=== PATIENT | female | born 1940 | race Caucasian/White ===

== ENCOUNTER 2023-05-19 11:40 | Inpatient (IN) | payer BC, MEDICARE, OTHER ==
[2023-05-19] VITALS (7 sets, daily range): BP systolic 79–115; BP diastolic 54–64; PULSE 111–128; RESP 18–24; O2SAT 94–98
[~2023-05-19] VITALS: Ht 152.4 cm; Wt 66.6 kg
[2023-05-19 12:44] LABS: Basophils # (auto) 0 10 ^3/uL (0-0.2); Basophils % (auto) 0.3 % (0.0-2.0); Eosinophils # (auto) 0 10 ^3/uL (0-0.8); Eosinophils % (auto) 0.1 % (0.0-7.0); Hematocrit 41.6 % (36.0-46.0); Hemoglobin 13.3 g/dL (12.2-16.2); Lymphocytes # (auto) 0.5 10 ^3/uL (0.4-5.4); Lymphocytes % (auto) 9.1 % (10.0-50.0); Mean Corpuscular Hemoglobin 29.6 pg (28.0-32.0); Mean Corpuscular Hgb Conc. 32.1 g/dL (32.0-36.0); Mean Corpuscular Volume 92.2 fL (80.0-100.0); Monocytes # (auto) 0.3 10 ^3/uL (0-1.3); Monocytes % (auto) 4.7 % (0.0-12.0); Neutrophils # (auto) 4.9 10 ^3/uL (1.6-8.6); Neutrophils % (auto) 85.8 % (37.0-80.0); Red Blood Cells 4.51 10^6/uL (4.0-5.20); Red Cell Distribution Width 15.3 % (11.8-14.3); White Blood Cell 5.7 10^3/uL (4.4-10.8)
[2023-05-19 13:02] LABS: Alanine Aminotransferase 21 U/L (7-40); Albumin 4.1 g/dL (3.2-4.8); Alkaline Phosphatase 99 U/L (46-116); Anion Gap 10 (5-15); Aspartate Aminotransferase 22 U/L (13-40); BUN/Creatinine Ratio 16.2 (10.0-20.0); Bilirubin, Total 0.4 mg/dL (0.2-1.0); Blood Urea Nitrogen 17 mg/dL (9-23); Calcium 8.9 mg/dL (8.7-10.4); Carbon Dioxide 23 mmol/L (20-30); Chloride 109 mmol/L (98-107); Glucose 119 mg/dL (74-106); Potassium 3.7 mmol/L (3.5-5.1); Sodium 142 mmol/L (136-145); Total Protein 6.4 g/dL (5.7-8.2)
[2023-05-19 13:13] LABS: Lactic Acid w/Reflex 2.5 mmol/L (0.4-2.0)
[2023-05-19] MEDS: IOHEXOL 350 MG/ML 100ML IJ ONE ×2 (13:28→15:12)
[2023-05-19] MEDS: ALBUTEROL SULF 2.5 MG/0.5ML(0.5%) NEB SOLN NEB ONE (13:37)
[2023-05-19] MEDS: IPRATROPIUM BROM 0.5 MG/2.5ML INH SOL NEB ONE (13:37)
[2023-05-19] MEDS: SODIUM CHLORIDE 0.9% 500 ML IV ONE (15:17)
[2023-05-19] MEDS: ASPirin 325 MG TAB PO ONE (15:29)
[2023-05-19] MEDS: methylPREDNISolone SOD SUCC 125 MG/2 ML VL IV ONE (15:29)
[2023-05-19 16:58] LABS: Base Excess -6.7 mmol/L (-2.0-2.0)
[2023-05-19] MEDS ORDERED: methylPREDNISolone SOD SUCC 40 MG/ML VL IV ONE (17:00)
[2023-05-19] MEDS ORDERED: hydrALAZINE HCL 20 MG/ML VL IV PRN (17:00)
[2023-05-19] MEDS: ALBUTEROL SULF 2.5 MG/0.5ML(0.5%) NEB SOLN ONE (18:03)
[2023-05-19] MEDS: IPRATROPIUM BROM 0.5 MG/2.5ML INH SOL ONE (18:03)
[2023-05-19 18:57] LABS: INR 1.09 (0.9-1.15); Partial Thromboplastin Time 27.8 SEC (24.5-34.5); Prothrombin Time 11.4 sec (9.3-11.8)
[2023-05-19 19:02] LABS: Lactic Acid w/Reflex 2.8 mmol/L (0.4-2.0)
[2023-05-19] MEDS ORDERED: MORPHINE SULFATE INJ 2 MG/ml SYRG IV PRN (19:45)
[2023-05-19] MEDS ORDERED: NITROGLYCERIN 0.4 MG SL TAB SL PRN (19:45)
[2023-05-19] MEDS ORDERED: HEPARIN SODIUM (PORCINE) 5000 UNITS/ML 1ML VIAL IV ONE (20:00)
[2023-05-19] MEDS: ENOXAPARIN SOD 60 MG/0.6 ML SYRINGE SC ONE ×2 (20:13→20:17)
[2023-05-19] MEDS: SODIUM CHLORIDE 0.9% 250 ML IV ONE (20:14)
[2023-05-19] MEDS: PIPERACILLIN-TAZOB 3.375GM 100 ML IV ONE (20:17)
[2023-05-19] MEDS: FUROSEMIDE 40 MG/4 ML VIAL IV ONE (20:17)
[2023-05-19] MEDS: ATORVASTATIN 20 MG TAB PO ONE (21:00)
[2023-05-19] MEDS: TICAGRELOR 90 MG TAB PO ONE (21:00)
[2023-05-19 21:39] LABS: Basophils # (auto) 0 10 ^3/uL (0-0.2); Basophils % (auto) 0.1 % (0.0-2.0); Eosinophils # (auto) 0 10 ^3/uL (0-0.8); Hematocrit 42.4 % (36.0-46.0); Hemoglobin 13.9 g/dL (12.2-16.2); Lymphocytes # (auto) 0.3 10 ^3/uL (0.4-5.4); Mean Corpuscular Hgb Conc. 32.7 g/dL (32.0-36.0); Mean Corpuscular Volume 91.5 fL (80.0-100.0); Monocytes # (auto) 0.1 10 ^3/uL (0-1.3); Monocytes % (auto) 0.9 % (0.0-12.0); Neutrophils # (auto) 6.3 10 ^3/uL (1.6-8.6); Red Blood Cells 4.64 10^6/uL (4.0-5.20); Red Cell Distribution Width 15.4 % (11.8-14.3); White Blood Cell 6.7 10^3/uL (4.4-10.8)
[2023-05-19 21:44] LABS: INR 1.06 (0.9-1.15); Partial Thromboplastin Time 29.2 SEC (24.5-34.5); Prothrombin Time 11.1 sec (9.3-11.8)
[2023-05-19] MEDS: HEPARIN DRIP/D5W 100UNITS/ML 250 ML IV SCH (22:28)
[2023-05-19] MEDS: methylPREDNISolone SOD SUCC 40 MG/ML VL IV SCH (22:35)
[2023-05-19] MEDS: DOXYCYCLINE 100MG/250ML 250 ML IV ONE ×2 (22:36→22:38)
[2023-05-19 22:59] LABS: COVID19 ANTIGEN SOFIA FIA NEGATIVE (NEGATIVE); Rapid Influenza A Negative (Negative); Rapid Influenza B Negative (Negative)
[2023-05-20] VITALS (19 sets, daily range): BP systolic 66–162; BP diastolic 45–134; PULSE 78–101; RESP 18–22; TEMP 97.9; O2SAT 92–97
[2023-05-20 05:30] LABS: Basophils # (auto) 0 10 ^3/uL (0-0.2); Basophils % (auto) 0.6 % (0.0-2.0); Eosinophils # (auto) 0 10 ^3/uL (0-0.8); Hematocrit 40.3 % (36.0-46.0); Hemoglobin 13.2 g/dL (12.2-16.2); Lymphocytes # (auto) 0.3 10 ^3/uL (0.4-5.4); Lymphocytes % (auto) 7.5 % (10.0-50.0); Mean Corpuscular Hemoglobin 29.3 pg (28.0-32.0); Mean Corpuscular Hgb Conc. 32.6 g/dL (32.0-36.0); Mean Corpuscular Volume 89.8 fL (80.0-100.0); Monocytes # (auto) 0.1 10 ^3/uL (0-1.3); Monocytes % (auto) 2.9 % (0.0-12.0); Neutrophils # (auto) 3.9 10 ^3/uL (1.6-8.6); Red Blood Cells 4.49 10^6/uL (4.0-5.20); Red Cell Distribution Width 15.3 % (11.8-14.3); White Blood Cell 4.4 10^3/uL (4.4-10.8)
[2023-05-20] MEDS: PHENYLEPHRINE IV 250 ML IV SCH (05:33)
[2023-05-20 05:42] LABS: Anion Gap 11 (5-15); Calcium 9.2 mg/dL (8.7-10.4); Carbon Dioxide 23 mmol/L (20-30); Chloride 105 mmol/L (98-107); Potassium 3.2 mmol/L (3.5-5.1); Sodium 139 mmol/L (136-145)
[2023-05-20 05:44] LABS: INR 1.13 (0.9-1.15); Partial Thromboplastin Time 36.5 SEC (24.5-34.5); Prothrombin Time 11.8 sec (9.3-11.8)
[2023-05-20] MEDS: DOXYCYCLINE 100MG/250ML 250 ML IV SCH (05:46)
[2023-05-20 05:47] LABS: Glucose 138 mg/dL (74-106)
[2023-05-20 05:48] LABS: BUN/Creatinine Ratio 12.5 (10.0-20.0); Blood Urea Nitrogen 12 mg/dL (9-23); Magnesium 1.7 mg/dL (1.6-2.6)
[2023-05-20] MEDS: HEPARIN DRIP/D5W 100UNITS/ML 250 ML IV SCH (06:05)
[2023-05-20 08:16] LABS: Base Excess 0.3 mmol/L (-2.0-2.0)
[2023-05-20] MEDS: MAGNESIUM SULFATE 1GM/100ML 100 ML IV ONE (08:28)
[2023-05-20] MEDS: NOREPINEPHRINE 8 MG/250ML KIT 250 ML IV SCH (08:35)
[2023-05-20] MEDS: PIPERACILLIN-TAZOB 3.375GM 100 ML IV SCH (09:53)
[2023-05-20] MEDS: POTASSIUM CHL 20MEQ/100ML 100 ML IV SCH (09:59)
[2023-05-20 12:35] LABS: INR 1.31 (0.9-1.15); Prothrombin Time 13.5 sec (9.3-11.8)
[2023-05-20 12:46] LABS: Urine Bacteria FEW /hpf (None Seen); Urine Blood 3+ /uL (Negative); Urine Clarity Clear (Clear); Urine Protein, UAD Negative (Negative); Urine Specific Gravity 1.006 (1.001-1.035); Urine Urobilinogen Normal (Negative); Urine WBC 1 /hpf (0 - 5)
[2023-05-20 12:47] LABS: Amphetamine Screen, Urine Neg (NEGATIVE); Barbiturate Scree,Urine Neg (NEGATIVE); Benzodiazephine Screen, Urine Neg (NEGATIVE); Cannabinoid Screen, Urine Neg (NEGATIVE); Cocaine Screen, Urine Neg (NEGATIVE); Opiate Scree,Urine Neg (NEGATIVE); Phencyclidine Screen, Urine Neg (NEGATIVE); Urine Color Straw (Yellow)
[2023-05-20] MEDS: LIDOCAINE 2%HCL (LOCAL ANESTH.) INJ 20ML MDV ONE (13:16)
[2023-05-20] MEDS: IODIXANOL 320MG/ML 100ML BTL IV ONE ×2 (13:17→13:47)
[2023-05-20 13:27] LABS: Partial Thromboplastin Time 78.2 SEC (24.5-34.5)
[2023-05-20] MEDS: ANGIOMAX 250 MG VIAL IV ONE (13:38)
[2023-05-20] MEDS: SODIUM CHL 0.9% 50 ML ONE (13:39)
[2023-05-20] MEDS: ATROPINE SULF 1 MG/10ml SYR ONE (14:36)
[2023-05-20] MEDS: niCARdipine 25 MG/10 ML VIAL IV ONE (14:42)
[2023-05-20] MEDS: CLOPIDOGREL 300 MG TAB ONE (15:06)
[2023-05-20] MEDS ORDERED: NIACPOW24 XX (18:59)
[2023-05-20] MEDS ORDERED: ACET-1304 PO (18:59)
[2023-05-20] MEDS ORDERED: CYA100I IM (18:59)
[2023-05-20] MEDS ORDERED: LOVA20TA4 PO (18:59)
[2023-05-20] MEDS ORDERED: ASPI1TAB20 PO (18:59)
[2023-05-20] MEDS ORDERED: CHOL20007 PO (18:59)
[2023-05-20] MEDS: ACETAMINOPHEN 325 MG TAB PO PRN (22:24)
[2023-05-20] MEDS: ATORVASTATIN 20 MG TAB PO SCH (22:25)
[2023-05-21] VITALS (11 sets, daily range): BP systolic 89–124; BP diastolic 47–101; PULSE 75–103; RESP 15–22; TEMP 97.5–98.1; O2SAT 91–98
[2023-05-21 06:55] LABS: Hematocrit 35.2 % (36.0-46.0); Mean Corpuscular Hemoglobin 29.6 pg (28.0-32.0); Mean Corpuscular Hgb Conc. 31.1 g/dL (32.0-36.0); Mean Corpuscular Volume 95.2 fL (80.0-100.0); Red Cell Distribution Width 15.9 % (11.8-14.3); White Blood Cell 7.8 10^3/uL (4.4-10.8)
[2023-05-21 07:07] LABS: Anion Gap 11 (5-15); Carbon Dioxide 22 mmol/L (20-30); Chloride 108 mmol/L (98-107); Potassium 3.4 mmol/L (3.5-5.1); Sodium 141 mmol/L (136-145)
[2023-05-21 07:09] LABS: Calcium 8.7 mg/dL (8.7-10.4)
[2023-05-21 07:13] LABS: BUN/Creatinine Ratio 14.3 (10.0-20.0); Blood Urea Nitrogen 15 mg/dL (9-23); Glucose 135 mg/dL (74-106)
[2023-05-21 07:29] LABS: Band Neutrophils % (manual) 0; Basophils % (manual) 0 (0.0-2.0); Blast Cells 0; Eosinophils % (manual) 0 (0-7); Metamyelocytes % 0; Myelocytes % 0; Promyelocytes % 0; Reactive Lymphocytes 0
[2023-05-21 09:10] LABS: Lymphocytes % (manual) 9 (10.0-50.0); Monocytes % (manual) 2 (0-12)
[2023-05-21 09:11] LABS: Platelet Estimate Adequate
[2023-05-21] MEDS: CLOPIDOGREL BISULFATE 75 MG TAB PO SCH (09:38)
[2023-05-21] MEDS: ASPirin-EC 81 mg tab PO SCH (09:38)
[2023-05-21] MEDS: METOPROLOL TARTRATE 25 MG TAB PO SCH (09:43)
[2023-05-21] MEDS: IPRATROPIUM BROM 0.5 MG/2.5ML INH SOL NEB PRN (19:12)
[2023-05-21] MEDS: ALBUTEROL SULF 2.5 MG/0.5ML(0.5%) NEB SOLN NEB PRN (19:12)
[2023-05-21] MEDS: SOD CHL 0.45% 500 ML IV SCH (22:31)
[2023-05-22] VITALS (11 sets, daily range): BP systolic 81–137; BP diastolic 43–69; PULSE 67–90; RESP 15–20; TEMP 96.2–98; O2SAT 96–99
[2023-05-22] MEDS: cefTRIAXone 1GM/50ML D5W 0 ML IV ONE (08:49)
[2023-05-22] MEDS: METOPROLOL TARTRATE 25 MG TAB PO SCH (17:15)
[2023-05-22] MEDS: MIDODRINE HCL 10 MG TAB PO SCH (18:02)
[2023-05-23] VITALS (12 sets, daily range): BP systolic 73–106; BP diastolic 52–63; PULSE 62–83; RESP 15–18; TEMP 97.6–98.3; O2SAT 93–100
[2023-05-23] MEDS ORDERED: CITA10TA5 PO (08:44)
[2023-05-23] MEDS ORDERED: ATOR20TA50 PO (12:40)
[2023-05-23] MEDS ORDERED: MET25T PO (12:40)
[2023-05-23] MEDS ORDERED: CLOP75TA70 PO (12:40)
[2023-05-23] MEDS ORDERED: ASPI-543 PO (12:40)
[2023-05-23] MEDS ORDERED: NITR0.4S29 SL (12:40)
[2023-05-23] MEDS ORDERED: VANCOMYCIN PER PHARMACY 0 MG IV SCH (12:45)
[2023-05-23] MEDS: VANCOMYCIN 1GM/200ML 200 ML IV ONE (14:42)
[2023-05-23] MEDS: DOXYCYCLINE 100MG/250ML 250 ML IV SCH (14:46)
[2023-05-23] MEDS ORDERED: VANCOMYCIN 1GM/200ML 200 ML IV SCH (15:00)
[2023-05-23] MEDS: cefTRIAXone 1GM/50ML D5W 50 ML IV ONE (17:03)
[2023-05-23] MEDS: NOREPINEPHRINE 8 MG/250ML KIT 250 ML IV ONE (21:39)
[2023-05-23] MEDS: NOREPINEPHRINE 8 MG/250ML KIT 250 ML IV SCH (21:45)
[2023-05-24] VITALS (79 sets, daily range): BP systolic 57–179; BP diastolic 35–144; PULSE 60–110; RESP 11–32; TEMP 97.3–97.7; O2SAT 82–100
[2023-05-24 05:17] LABS: Chloride 109 mmol/L (98-107); Potassium 3.9 mmol/L (3.5-5.1); Sodium 142 mmol/L (136-145)
[2023-05-24 05:18] LABS: Anion Gap 11 (5-15); Carbon Dioxide 22 mmol/L (20-30)
[2023-05-24 05:23] LABS: BUN/Creatinine Ratio 23.6 (10.0-20.0); Blood Urea Nitrogen 26 mg/dL (9-23); Glucose 145 mg/dL (74-106)
[2023-05-24 06:53] LABS: Basophils # (auto) 0 10 ^3/uL (0-0.2); Basophils % (auto) 0.1 % (0.0-2.0); Eosinophils # (auto) 0 10 ^3/uL (0-0.8); Hematocrit 39.4 % (36.0-46.0); Hemoglobin 12.7 g/dL (12.2-16.2); Lymphocytes # (auto) 0.6 10 ^3/uL (0.4-5.4); Lymphocytes % (auto) 5.5 % (10.0-50.0); Mean Corpuscular Hemoglobin 29.7 pg (28.0-32.0); Mean Corpuscular Hgb Conc. 32.2 g/dL (32.0-36.0); Mean Corpuscular Volume 92.2 fL (80.0-100.0); Monocytes # (auto) 0.5 10 ^3/uL (0-1.3); Monocytes % (auto) 4.5 % (0.0-12.0); Neutrophils # (auto) 10.3 10 ^3/uL (1.6-8.6); Neutrophils % (auto) 89.9 % (37.0-80.0); Nucleated Red Blood Cells % 0.1 %; Red Blood Cells 4.27 10^6/uL (4.0-5.20); Red Cell Distribution Width 15.6 % (11.8-14.3); White Blood Cell 11.5 10^3/uL (4.4-10.8)
[2023-05-24] MEDS: cefTRIAXone 1GM/50ML D5W 50 ML IV SCH (10:40)
[2023-05-24] MEDS: NOREPINEPHRINE 8 MG/250ML KIT 250 ML IV SCH (12:15)
[2023-05-25] VITALS (87 sets, daily range): BP systolic 56–208; BP diastolic 23–136; PULSE 58–147; RESP 12–36; TEMP 97.6–98.5; O2SAT 79–100
[2023-05-25 05:55] LABS: Basophils # (auto) 0 10 ^3/uL (0-0.2); Basophils % (auto) 0.1 % (0.0-2.0); Eosinophils # (auto) 0 10 ^3/uL (0-0.8); Eosinophils % (auto) 0.4 % (0.0-7.0); Hematocrit 37.3 % (36.0-46.0); Hemoglobin 12.1 g/dL (12.2-16.2); Lymphocytes # (auto) 1.3 10 ^3/uL (0.4-5.4); Lymphocytes % (auto) 15.8 % (10.0-50.0); Mean Corpuscular Hemoglobin 29.8 pg (28.0-32.0); Mean Corpuscular Hgb Conc. 32.5 g/dL (32.0-36.0); Mean Corpuscular Volume 91.6 fL (80.0-100.0); Monocytes # (auto) 0.7 10 ^3/uL (0-1.3); Monocytes % (auto) 8.3 % (0.0-12.0); Neutrophils # (auto) 6.4 10 ^3/uL (1.6-8.6); Neutrophils % (auto) 75.4 % (37.0-80.0); Red Blood Cells 4.07 10^6/uL (4.0-5.20); Red Cell Distribution Width 15.4 % (11.8-14.3); White Blood Cell 8.5 10^3/uL (4.4-10.8)
[2023-05-25 06:12] LABS: Alanine Aminotransferase 32 U/L (7-40); Alkaline Phosphatase 67 U/L (46-116); Anion Gap 8 (5-15); BUN/Creatinine Ratio 19.1 (10.0-20.0); Blood Urea Nitrogen 17 mg/dL (9-23); Calcium 8.5 mg/dL (8.5-10.1); Carbon Dioxide 25 mmol/L (20-30); Chloride 107 mmol/L (98-107); Glucose 101 mg/dL (74-106); Potassium 3.5 mmol/L (3.5-5.1); Sodium 140 mmol/L (136-145)
[2023-05-25 06:13] LABS: Albumin 3.1 g/dL (3.2-4.8); Aspartate Aminotransferase 30 U/L (13-40); Bilirubin, Total 0.6 mg/dL (0.2-1.0); Total Protein 4.8 g/dL (5.7-8.2)
[2023-05-25] MEDS ORDERED: FUROSEMIDE 40 MG/4 ML VIAL IV ONE (10:00)
[2023-05-25] MEDS ORDERED: METOPROLOL TARTRATE 25 MG TAB PO SCH (10:00)
[2023-05-25] MEDS ORDERED: POTASSIUM CHL 20 Meq TABLET PO ONE (10:15)
[2023-05-25] MEDS ORDERED: MIDODRINE HCL 10 MG TAB PO SCH (12:00)
[2023-05-25] MEDS: POTASSIUM CHLORIDE 40 MEQ, LIDOCAINE 1% (LOCAL ANESTH.) 4 ML in SODIUM CHL 0.9% 250 ML IV ONE (13:43)
[2023-05-25] MEDS: MIDODRINE HCL 10 MG TAB PO SCH (14:27)
[2023-05-25] MEDS: DOBUTamine 1000MCG/ML 250 ML IV SCH (19:44)
[2023-05-25 19:46] LABS: INR 1.09 (0.9-1.15); Partial Thromboplastin Time 23.2 SEC (24.5-34.5); Prothrombin Time 11.4 sec (9.3-11.8)
[2023-05-25 20:30] LABS: Alanine Aminotransferase 34 U/L (7-40); Albumin 3.8 g/dL (3.2-4.8); Alkaline Phosphatase 87 U/L (46-116); Anion Gap 9 (5-15); Aspartate Aminotransferase 33 U/L (13-40); Bilirubin, Total 0.8 mg/dL (0.2-1.0); Blood Urea Nitrogen 20 mg/dL (9-23); Calcium 9.2 mg/dL (8.5-10.1); Carbon Dioxide 25 mmol/L (20-30); Chloride 106 mmol/L (98-107); Glucose 82 mg/dL (74-106); Potassium 3.9 mmol/L (3.5-5.1); Sodium 140 mmol/L (136-145); Total Protein 5.8 g/dL (5.7-8.2)
[2023-05-25] MEDS: NOREPINEPHRINE BITARTRATE 32 MG in SODIUM CHL 0.9% 218 ML IV SCH (20:39)
[2023-05-25] MEDS: ONDANSETRON HCL 4 MG/2 ML VIAL IV PRN (20:42)
[2023-05-26] VITALS (113 sets, daily range): BP systolic 53–226; BP diastolic 18–195; PULSE 102–155; RESP 13–43; TEMP 97.2–98.6; O2SAT 77–100
[2023-05-26] MEDS: PHENYLEPHRINE INJ 80 MG in SODIUM CHL 0.9% 242 ML IV SCH (04:46)
[2023-05-26] MEDS: PHENYLEPHRINE HCL 10 MG/ML VL ONE (05:02)
[2023-05-26] MEDS: PHENYLEPHRINE IV 250 ML IV ONE (05:03)
[2023-05-26 06:23] LABS: Alanine Aminotransferase 40 U/L (7-40); Albumin 4.1 g/dL (3.2-4.8); Alkaline Phosphatase 103 U/L (46-116); Anion Gap 12 (5-15); Aspartate Aminotransferase 35 U/L (13-40); BUN/Creatinine Ratio 18.3 (10.0-20.0); Bilirubin, Total 0.8 mg/dL (0.2-1.0); Blood Urea Nitrogen 23 mg/dL (9-23); Calcium 9.3 mg/dL (8.5-10.1); Carbon Dioxide 22 mmol/L (20-30); Chloride 105 mmol/L (98-107); Glucose 166 mg/dL (74-106); Potassium 3.8 mmol/L (3.5-5.1); Sodium 139 mmol/L (136-145); Total Protein 6.2 g/dL (5.7-8.2)
[2023-05-26 06:33] LABS: Basophils # (auto) 0.1 10 ^3/uL (0-0.2); Basophils % (auto) 0.2 % (0.0-2.0); Eosinophils # (auto) 0 10 ^3/uL (0-0.8); Hematocrit 45.7 % (36.0-46.0); Hemoglobin 14.8 g/dL (12.2-16.2); Lymphocytes % (auto) 4.2 % (10.0-50.0); Mean Corpuscular Hemoglobin 29.8 pg (28.0-32.0); Mean Corpuscular Hgb Conc. 32.4 g/dL (32.0-36.0); Mean Corpuscular Volume 92.1 fL (80.0-100.0); Monocytes % (auto) 8.1 % (0.0-12.0); Neutrophils # (auto) 21.7 10 ^3/uL (1.6-8.6); Neutrophils % (auto) 87.5 % (37.0-80.0); Nucleated Red Blood Cells % 0.1 %; Red Blood Cells 4.96 10^6/uL (4.0-5.20); Red Cell Distribution Width 15.7 % (11.8-14.3); White Blood Cell 24.8 10^3/uL (4.4-10.8)
[2023-05-26 09:04] LABS: Base Excess -8.3 mmol/L (-2.0-2.0)
[2023-05-26] MEDS: ADENOSINE 6 MG/2 ML INJ IV ONE ×2 (09:13→10:12)
[2023-05-26] MEDS: PANTOPRAZOLE 40 MG/10 ML VIAL INJ IV SCH (10:02)
[2023-05-26] MEDS: ALBUMIN 25% 100 ML IV SCH (10:03)
[2023-05-26] MEDS: AMIODARONE BOLUS KIT 100 ML IV ONE (10:21)
[2023-05-26] MEDS: AMIODARONE 450mg/250ml AE 250 ML IV SCH ×2 (10:31→16:19)
[2023-05-26] MEDS: DIGOXIN 0.25 MG TAB PO ONE ×2 (11:17→13:02)
[2023-05-27] VITALS (98 sets, daily range): BP systolic 70–172; BP diastolic 39–130; PULSE 75–116; RESP 16–46; TEMP 97.6–98.9; O2SAT 73–100
[2023-05-27 05:01] LABS: Basophils # (auto) 0 10 ^3/uL (0-0.2); Basophils % (auto) 0.1 % (0.0-2.0); Eosinophils # (auto) 0.1 10 ^3/uL (0-0.8); Eosinophils % (auto) 0.7 % (0.0-7.0); Hematocrit 33.1 % (36.0-46.0); Lymphocytes # (auto) 1.5 10 ^3/uL (0.4-5.4); Lymphocytes % (auto) 10.4 % (10.0-50.0); Mean Corpuscular Hemoglobin 30.6 pg (28.0-32.0); Mean Corpuscular Hgb Conc. 33.4 g/dL (32.0-36.0); Mean Corpuscular Volume 91.7 fL (80.0-100.0); Monocytes # (auto) 1.6 10 ^3/uL (0-1.3); Monocytes % (auto) 10.8 % (0.0-12.0); Neutrophils # (auto) 11.5 10 ^3/uL (1.6-8.6); Red Blood Cells 3.61 10^6/uL (4.0-5.20); Red Cell Distribution Width 15.3 % (11.8-14.3); White Blood Cell 14.7 10^3/uL (4.4-10.8)
[2023-05-27] MEDS: DIGOXIN 0.125 MG TAB PO SCH (07:39)
[2023-05-27 07:41] LABS: Alanine Aminotransferase 38 U/L (7-40); Alkaline Phosphatase 77 U/L (46-116); Anion Gap 8 (5-15); Aspartate Aminotransferase 38 U/L (13-40); BUN/Creatinine Ratio 22.3 (10.0-20.0); Bilirubin, Total 1.2 mg/dL (0.2-1.0); Blood Urea Nitrogen 23 mg/dL (9-23); Calcium 8.9 mg/dL (8.7-10.4); Carbon Dioxide 25 mmol/L (20-30); Chloride 109 mmol/L (98-107); Glucose 100 mg/dL (74-106); Potassium 3.7 mmol/L (3.5-5.1); Sodium 142 mmol/L (136-145); Total Protein 5.6 g/dL (5.7-8.2)
[2023-05-28] VITALS (89 sets, daily range): BP systolic 65–121; BP diastolic 41–84; PULSE 66–87; RESP 14–30; TEMP 98–99.3; O2SAT 78–100
[2023-05-28 04:47] LABS: Basophils # (auto) 0.1 10 ^3/uL (0-0.2); Basophils % (auto) 0.4 % (0.0-2.0); Eosinophils # (auto) 0.2 10 ^3/uL (0-0.8); Eosinophils % (auto) 1.2 % (0.0-7.0); Hematocrit 30.8 % (36.0-46.0); Hemoglobin 10.1 g/dL (12.2-16.2); Lymphocytes % (auto) 7.4 % (10.0-50.0); Mean Corpuscular Hgb Conc. 32.6 g/dL (32.0-36.0); Mean Corpuscular Volume 91.9 fL (80.0-100.0); Monocytes # (auto) 1.3 10 ^3/uL (0-1.3); Monocytes % (auto) 9.7 % (0.0-12.0); Neutrophils # (auto) 10.6 10 ^3/uL (1.6-8.6); Neutrophils % (auto) 81.3 % (37.0-80.0); Red Blood Cells 3.36 10^6/uL (4.0-5.20); Red Cell Distribution Width 15.3 % (11.8-14.3); White Blood Cell 13.1 10^3/uL (4.4-10.8)
[2023-05-28 05:20] LABS: Chloride 107 mmol/L (98-107); Potassium 3.2 mmol/L (3.5-5.1); Sodium 141 mmol/L (136-145)
[2023-05-28 05:21] LABS: Anion Gap 8 (5-15); Carbon Dioxide 26 mmol/L (20-30)
[2023-05-28 05:26] LABS: BUN/Creatinine Ratio 16.9 (10.0-20.0); Blood Urea Nitrogen 14 mg/dL (9-23); Glucose 91 mg/dL (74-106)
[2023-05-28 09:47] LABS: Base Excess -0.9 mmol/L (-2.0-2.0)
[2023-05-28] MEDS: FUROSEMIDE 40 MG/4 ML VIAL IV ONE ×2 (10:32→12:15)
[2023-05-28] MEDS: POTASSIUM CHL 20MEQ/100ML 100 ML IV ONE (11:17)
[2023-05-28] MEDS: POTASSIUM CHL 20 Meq TABLET PO ONE (11:17)
[2023-05-29] VITALS (104 sets, daily range): BP systolic 72–121; BP diastolic 42–87; PULSE 63–139; RESP 13–33; TEMP 97.6–99.8; O2SAT 81–100
[2023-05-29 05:58] LABS: Basophils # (auto) 0 10 ^3/uL (0-0.2); Basophils % (auto) 0.1 % (0.0-2.0); Eosinophils # (auto) 0.1 10 ^3/uL (0-0.8); Eosinophils % (auto) 0.4 % (0.0-7.0); Hematocrit 31.3 % (36.0-46.0); Hemoglobin 10.4 g/dL (12.2-16.2); Lymphocytes # (auto) 1.1 10 ^3/uL (0.4-5.4); Lymphocytes % (auto) 9.3 % (10.0-50.0); Mean Corpuscular Hemoglobin 30.5 pg (28.0-32.0); Mean Corpuscular Hgb Conc. 33.2 g/dL (32.0-36.0); Monocytes # (auto) 1.3 10 ^3/uL (0-1.3); Monocytes % (auto) 10.3 % (0.0-12.0); Neutrophils # (auto) 9.9 10 ^3/uL (1.6-8.6); Neutrophils % (auto) 79.9 % (37.0-80.0); Red Cell Distribution Width 15.3 % (11.8-14.3); White Blood Cell 12.4 10^3/uL (4.4-10.8)
[2023-05-29 06:43] LABS: Anion Gap 10 (5-15); Calcium 9.1 mg/dL (8.7-10.4); Carbon Dioxide 27 mmol/L (20-30); Chloride 104 mmol/L (98-107); Potassium 3.6 mmol/L (3.5-5.1); Sodium 141 mmol/L (136-145)
[2023-05-29 06:49] LABS: BUN/Creatinine Ratio 20.4 (10.0-20.0); Blood Urea Nitrogen 20 mg/dL (9-23); Glucose 92 mg/dL (74-106)
[2023-05-29] MEDS: FUROSEMIDE 40 MG/4 ML VIAL IV ONE (08:00)
[2023-05-29] MEDS: ALBUTEROL SULF 2.5 MG/0.5ML(0.5%) NEB SOLN NEB SCH (10:11)
[2023-05-29] MEDS: IPRATROPIUM BROM 0.5 MG/2.5ML INH SOL NEB SCH (10:12)
[2023-05-29] MEDS: AMIODARONE HCL 200 MG TAB PO SCH (13:17)
[2023-05-29] MEDS: FUROSEMIDE 40 MG/4 ML VIAL IV SCH (16:41)
[2023-05-30] VITALS (96 sets, daily range): BP systolic 73–126; BP diastolic 48–85; PULSE 67–87; RESP 14–34; TEMP 97.1–98.2; O2SAT 86–99
[2023-05-30 05:37] LABS: Basophils # (auto) 0 10 ^3/uL (0-0.2); Basophils % (auto) 0.2 % (0.0-2.0); Eosinophils # (auto) 0.2 10 ^3/uL (0-0.8); Eosinophils % (auto) 1.6 % (0.0-7.0); Hematocrit 33.5 % (36.0-46.0); Lymphocytes % (auto) 8.1 % (10.0-50.0); Mean Corpuscular Hemoglobin 30.1 pg (28.0-32.0); Mean Corpuscular Hgb Conc. 32.9 g/dL (32.0-36.0); Mean Corpuscular Volume 91.4 fL (80.0-100.0); Monocytes # (auto) 1.2 10 ^3/uL (0-1.3); Monocytes % (auto) 8.9 % (0.0-12.0); Neutrophils # (auto) 10.5 10 ^3/uL (1.6-8.6); Neutrophils % (auto) 81.2 % (37.0-80.0); Nucleated Red Blood Cells % 0.1 %; Red Blood Cells 3.67 10^6/uL (4.0-5.20); Red Cell Distribution Width 14.9 % (11.8-14.3); White Blood Cell 12.9 10^3/uL (4.4-10.8)
[2023-05-30 05:53] LABS: Alanine Aminotransferase 280 U/L (7-40); Albumin 4.8 g/dL (3.2-4.8); Alkaline Phosphatase 172 U/L (46-116); Anion Gap 10 (5-15); Aspartate Aminotransferase 229 U/L (13-40); BUN/Creatinine Ratio 20.2 (10.0-20.0); Bilirubin, Total 2.1 mg/dL (0.2-1.0); Blood Urea Nitrogen 20 mg/dL (9-23); Calcium 9.7 mg/dL (8.7-10.4); Carbon Dioxide 30 mmol/L (20-30); Chloride 102 mmol/L (98-107); Glucose 81 mg/dL (74-106); Sodium 142 mmol/L (136-145); Total Protein 6.6 g/dL (5.7-8.2)
[2023-05-30] MEDS ORDERED: methylPREDNISolone SOD SUCC 40 MG/ML VL IM ONE (11:00)
[2023-05-30] MEDS: ENOXAPARIN SOD 40 MG/0.4 ML SYRINGE SC ONE (11:20)
[2023-05-30] MEDS: POTASSIUM CHL 20MEQ/100ML 100 ML IV ONE (11:21)
[2023-05-30] MEDS: POTASSIUM CHL 20 Meq TABLET PO ONE (11:21)
[2023-05-30] MEDS: methylPREDNISolone SOD SUCC 40 MG/ML VL IV ONE (11:37)
[2023-05-30] MEDS ORDERED: VANCOMYCIN PER PHARMACY 0 MG IV SCH (16:15)
[2023-05-30] MEDS ORDERED: VANCOMYCIN 1GM/200ML 200 ML IV ONE (18:00)
[2023-05-30] MEDS ORDERED: CEFEPIME 1GM/ 50ML 50 ML IV SCH (22:00)
[2023-05-30] MEDS: methylPREDNISolone SOD SUCC 40 MG/ML VL IV SCH (22:37)
[2023-05-30] MEDS: POTASSIUM CHL 10 Meq TABLET PO SCH (22:37)
[2023-05-31] VITALS (108 sets, daily range): BP systolic 64–128; BP diastolic 38–103; PULSE 71–82; RESP 12–29; TEMP 97.5–98.1; O2SAT 79–100
[2023-05-31 05:49] LABS: Basophils # (auto) 0 10 ^3/uL (0-0.2); Eosinophils # (auto) 0 10 ^3/uL (0-0.8); Hematocrit 33.5 % (36.0-46.0); Hemoglobin 10.9 g/dL (12.2-16.2); Lymphocytes # (auto) 0.5 10 ^3/uL (0.4-5.4); Lymphocytes % (auto) 5.7 % (10.0-50.0); Mean Corpuscular Hemoglobin 30.1 pg (28.0-32.0); Mean Corpuscular Hgb Conc. 32.6 g/dL (32.0-36.0); Mean Corpuscular Volume 92.4 fL (80.0-100.0); Monocytes # (auto) 0.2 10 ^3/uL (0-1.3); Monocytes % (auto) 2.6 % (0.0-12.0); Neutrophils # (auto) 7.6 10 ^3/uL (1.6-8.6); Neutrophils % (auto) 91.7 % (37.0-80.0); Nucleated Red Blood Cells % 0.1 %; Red Blood Cells 3.62 10^6/uL (4.0-5.20); Red Cell Distribution Width 15.1 % (11.8-14.3); White Blood Cell 8.3 10^3/uL (4.4-10.8)
[2023-05-31 06:06] LABS: Alanine Aminotransferase 196 U/L (7-40); Albumin 5.5 g/dL (3.2-4.8); Alkaline Phosphatase 139 U/L (46-116); Anion Gap 11 (5-15); Aspartate Aminotransferase 132 U/L (13-40); BUN/Creatinine Ratio 23.9 (10.0-20.0); Blood Urea Nitrogen 28 mg/dL (9-23); Calcium 10.4 mg/dL (8.5-10.1); Carbon Dioxide 29 mmol/L (20-30); Chloride 103 mmol/L (98-107); Glucose 125 mg/dL (74-106); Potassium 3.4 mmol/L (3.5-5.1); Sodium 143 mmol/L (136-145)
[2023-05-31 06:07] LABS: Bilirubin, Total 1.8 mg/dL (0.2-1.0); Total Protein 7.4 g/dL (5.7-8.2)
[2023-05-31] MEDS: POTASSIUM CHL 20 Meq TABLET PO ONE ×2 (07:05→07:08)
[2023-05-31] MEDS: POTASSIUM CHL 20MEQ/100ML 100 ML IV ONE ×2 (07:06)
[2023-05-31] MEDS: ALBUTEROL SULF 2.5 MG/0.5ML(0.5%) NEB SOLN NEB PRN (07:13)
[2023-05-31] MEDS: IPRATROPIUM BROM 0.5 MG/2.5ML INH SOL NEB PRN (07:13)
[2023-05-31] MEDS: ENOXAPARIN SOD 40 MG/0.4 ML SYRINGE SC SCH (10:17)
[2023-06-01] VITALS (97 sets, daily range): BP systolic 74–130; BP diastolic 46–99; PULSE 72–86; RESP 14–30; TEMP 97–97.9; O2SAT 0–100
[2023-06-01 05:08] LABS: Basophils # (auto) 0 10 ^3/uL (0-0.2); Basophils % (auto) 0.1 % (0.0-2.0); Eosinophils # (auto) 0 10 ^3/uL (0-0.8); Hematocrit 33.3 % (36.0-46.0); Hemoglobin 10.8 g/dL (12.2-16.2); Lymphocytes # (auto) 0.7 10 ^3/uL (0.4-5.4); Lymphocytes % (auto) 4.3 % (10.0-50.0); Mean Corpuscular Hemoglobin 29.8 pg (28.0-32.0); Mean Corpuscular Hgb Conc. 32.4 g/dL (32.0-36.0); Mean Corpuscular Volume 92.1 fL (80.0-100.0); Monocytes # (auto) 0.7 10 ^3/uL (0-1.3); Monocytes % (auto) 4.7 % (0.0-12.0); Neutrophils # (auto) 14.1 10 ^3/uL (1.6-8.6); Neutrophils % (auto) 90.9 % (37.0-80.0); Nucleated Red Blood Cells % 0.1 %; Red Blood Cells 3.62 10^6/uL (4.0-5.20); Red Cell Distribution Width 15.7 % (11.8-14.3); White Blood Cell 15.5 10^3/uL (4.4-10.8)
[2023-06-01 05:26] LABS: Alanine Aminotransferase 173 U/L (7-40); Albumin 5.2 g/dL (3.2-4.8); Alkaline Phosphatase 137 U/L (46-116); Anion Gap 11 (5-15); Aspartate Aminotransferase 110 U/L (13-40); BUN/Creatinine Ratio 26.5 (10.0-20.0); Bilirubin, Total 1.6 mg/dL (0.2-1.0); Blood Urea Nitrogen 31 mg/dL (9-23); Calcium 10.4 mg/dL (8.5-10.1); Carbon Dioxide 30 mmol/L (20-30); Chloride 102 mmol/L (98-107); Glucose 126 mg/dL (74-106); Potassium 3.5 mmol/L (3.5-5.1); Sodium 143 mmol/L (136-145); Total Protein 7.2 g/dL (5.7-8.2)
[2023-06-01 06:03] LABS: Magnesium 1.8 mg/dL (1.6-2.6)
[2023-06-01] MEDS: MAGNESIUM SULFATE 1GM/100ML 100 ML IV SCH (06:32)
[2023-06-01] MEDS: ENOXAPARIN SOD 30 MG/0.3 ML SYRINGE SC SCH (10:11)
[2023-06-01] MEDS: HYDROCORTISONE SOD SUCC 100 MG/2ML INJ VIAL IV SCH (21:43)
[2023-06-02] VITALS (94 sets, daily range): BP systolic 66–136; BP diastolic 41–111; PULSE 59–151; RESP 12–33; TEMP 97.4–98.5; O2SAT 77–100
[2023-06-02 06:14] LABS: Basophils # (auto) 0 10 ^3/uL (0-0.2); Basophils % (auto) 0.1 % (0.0-2.0); Eosinophils # (auto) 0 10 ^3/uL (0-0.8); Hematocrit 34.4 % (36.0-46.0); Hemoglobin 11.2 g/dL (12.2-16.2); Lymphocytes # (auto) 0.4 10 ^3/uL (0.4-5.4); Lymphocytes % (auto) 2.9 % (10.0-50.0); Mean Corpuscular Hemoglobin 29.8 pg (28.0-32.0); Mean Corpuscular Hgb Conc. 32.6 g/dL (32.0-36.0); Mean Corpuscular Volume 91.5 fL (80.0-100.0); Monocytes # (auto) 0.8 10 ^3/uL (0-1.3); Monocytes % (auto) 5.3 % (0.0-12.0); Neutrophils # (auto) 14.2 10 ^3/uL (1.6-8.6); Neutrophils % (auto) 91.7 % (37.0-80.0); Nucleated Red Blood Cells % 0.1 %; Red Blood Cells 3.76 10^6/uL (4.0-5.20); Red Cell Distribution Width 15.7 % (11.8-14.3); White Blood Cell 15.5 10^3/uL (4.4-10.8)
[2023-06-02 06:32] LABS: Alanine Aminotransferase 271 U/L (7-40); Albumin 4.9 g/dL (3.2-4.8); Alkaline Phosphatase 156 U/L (46-116); Anion Gap 12 (5-15); Aspartate Aminotransferase 292 U/L (13-40); BUN/Creatinine Ratio 23.5 (10.0-20.0); Bilirubin, Total 1.6 mg/dL (0.2-1.0); Blood Urea Nitrogen 28 mg/dL (9-23); Calcium 9.8 mg/dL (8.5-10.1); Carbon Dioxide 31 mmol/L (20-30); Chloride 99 mmol/L (98-107); Glucose 114 mg/dL (74-106); Potassium 2.8 mmol/L (3.5-5.1); Sodium 142 mmol/L (136-145); Total Protein 6.8 g/dL (5.7-8.2)
[2023-06-02] MEDS: POTASSIUM CHL 20 Meq TABLET PO ONE (08:06)
[2023-06-02] MEDS: POTASSIUM CHL 20MEQ/100ML 100 ML IV ONE (08:07)
[2023-06-03] VITALS (93 sets, daily range): BP systolic 64–126; BP diastolic 33–84; PULSE 64–100; RESP 11–28; TEMP 97–98.3; O2SAT 91–100
[2023-06-03 05:15] LABS: Basophils # (auto) 0 10 ^3/uL (0-0.2); Basophils % (auto) 0.2 % (0.0-2.0); Eosinophils # (auto) 0 10 ^3/uL (0-0.8); Hematocrit 37.1 % (36.0-46.0); Hemoglobin 11.9 g/dL (12.2-16.2); Lymphocytes # (auto) 0.5 10 ^3/uL (0.4-5.4); Lymphocytes % (auto) 3.1 % (10.0-50.0); Mean Corpuscular Hemoglobin 29.7 pg (28.0-32.0); Mean Corpuscular Hgb Conc. 32.1 g/dL (32.0-36.0); Mean Corpuscular Volume 92.4 fL (80.0-100.0); Monocytes # (auto) 0.8 10 ^3/uL (0-1.3); Monocytes % (auto) 4.8 % (0.0-12.0); Neutrophils # (auto) 16.2 10 ^3/uL (1.6-8.6); Neutrophils % (auto) 91.9 % (37.0-80.0); Red Blood Cells 4.02 10^6/uL (4.0-5.20); Red Cell Distribution Width 15.8 % (11.8-14.3); White Blood Cell 17.6 10^3/uL (4.4-10.8)
[2023-06-03 05:24] LABS: Anion Gap 9 (5-15); Carbon Dioxide 30 mmol/L (20-30); Chloride 105 mmol/L (98-107); Potassium 3.7 mmol/L (3.5-5.1); Sodium 144 mmol/L (136-145)
[2023-06-03 05:25] LABS: Calcium 9.8 mg/dL (8.5-10.1)
[2023-06-03 05:30] LABS: BUN/Creatinine Ratio 24.8 (10.0-20.0); Blood Urea Nitrogen 30 mg/dL (9-23); Glucose 113 mg/dL (74-106)
[2023-06-03] MEDS: FUROSEMIDE 40 MG/4 ML VIAL IV SCH (10:00)
[2023-06-03] MEDS: ALBUMIN 25% 100 ML IV SCH (14:49)
[2023-06-04] VITALS (98 sets, daily range): BP systolic 49–116; BP diastolic 26–79; PULSE 68–110; RESP 12–31; TEMP 97.4–98.3; O2SAT 76–100
[2023-06-04] MEDS: SODIUM CHLORIDE 0.9% 500 ML IV ONE (09:51)
[2023-06-05] VITALS (98 sets, daily range): BP systolic 60–194; BP diastolic 44–88; PULSE 63–84; RESP 16–38; TEMP 96.6–98.4; O2SAT 68–100
[2023-06-05 08:42] LABS: Basophils # (auto) 0.1 10 ^3/uL (0-0.2); Basophils % (auto) 0.4 % (0.0-2.0); Eosinophils # (auto) 0 10 ^3/uL (0-0.8); Hematocrit 29.3 % (36.0-46.0); Hemoglobin 9.4 g/dL (12.2-16.2); Lymphocytes # (auto) 0.7 10 ^3/uL (0.4-5.4); Lymphocytes % (auto) 5.1 % (10.0-50.0); Mean Corpuscular Hemoglobin 29.9 pg (28.0-32.0); Mean Corpuscular Hgb Conc. 32.2 g/dL (32.0-36.0); Mean Corpuscular Volume 92.9 fL (80.0-100.0); Monocytes # (auto) 0.7 10 ^3/uL (0-1.3); Monocytes % (auto) 4.6 % (0.0-12.0); Neutrophils # (auto) 12.6 10 ^3/uL (1.6-8.6); Neutrophils % (auto) 89.9 % (37.0-80.0); Nucleated Red Blood Cells % 0.1 %; Red Blood Cells 3.15 10^6/uL (4.0-5.20); Red Cell Distribution Width 15.9 % (11.8-14.3)
[2023-06-05 08:56] LABS: Chloride 110 mmol/L (98-107); Potassium 3.8 mmol/L (3.5-5.1); Sodium 142 mmol/L (136-145)
[2023-06-05 08:57] LABS: Anion Gap 8 (5-15); Calcium 9.5 mg/dL (8.7-10.4); Carbon Dioxide 24 mmol/L (20-30)
[2023-06-05 09:02] LABS: BUN/Creatinine Ratio 31.4 (10.0-20.0); Blood Urea Nitrogen 32 mg/dL (9-23); Glucose 121 mg/dL (74-106)
[2023-06-05 09:03] LABS: Magnesium 2.1 mg/dL (1.6-2.6)
[2023-06-05 10:45] LABS: INR 1.33 (0.9-1.15); Partial Thromboplastin Time 28.2 SEC (24.5-34.5); Prothrombin Time 13.7 sec (9.3-11.8)
[2023-06-05] MEDS ORDERED: SODIUM CHLORIDE 0.9% 1,800 ML IV ONE (11:00)
[2023-06-05] MEDS: SODIUM CHLORIDE 0.9% 500 ML IV ONE (12:15)
[2023-06-05] MEDS: LIDOCAINE 1% (LOCAL ANESTH.) PF 5ml SDV ID ONE (13:55)
[2023-06-05] MEDS: SODIUM CHLOR 0.9% PF (SALINE LOCK) 10ML VIAL/SYR IV SCH (21:15)
[2023-06-06] VITALS (95 sets, daily range): BP systolic 60–138; BP diastolic 41–98; PULSE 60–115; RESP 16–39; TEMP 97–97.8; O2SAT 74–99
[2023-06-06 06:20] LABS: Basophils # (auto) 0 10 ^3/uL (0-0.2); Basophils % (auto) 0.1 % (0.0-2.0); Eosinophils # (auto) 0 10 ^3/uL (0-0.8); Hematocrit 28.4 % (36.0-46.0); Lymphocytes # (auto) 0.4 10 ^3/uL (0.4-5.4); Lymphocytes % (auto) 3.3 % (10.0-50.0); Mean Corpuscular Hemoglobin 29.4 pg (28.0-32.0); Mean Corpuscular Hgb Conc. 31.8 g/dL (32.0-36.0); Mean Corpuscular Volume 92.5 fL (80.0-100.0); Monocytes # (auto) 0.3 10 ^3/uL (0-1.3); Monocytes % (auto) 2.7 % (0.0-12.0); Neutrophils # (auto) 11.2 10 ^3/uL (1.6-8.6); Neutrophils % (auto) 93.9 % (37.0-80.0); Red Blood Cells 3.07 10^6/uL (4.0-5.20); Red Cell Distribution Width 16.1 % (11.8-14.3); White Blood Cell 11.9 10^3/uL (4.4-10.8)
[2023-06-06 06:34] LABS: Calcium 9.3 mg/dL (8.5-10.1); Chloride 111 mmol/L (98-107); Sodium 144 mmol/L (136-145)
[2023-06-06 06:35] LABS: Anion Gap 8 (5-15); Carbon Dioxide 25 mmol/L (20-30)
[2023-06-06 06:41] LABS: BUN/Creatinine Ratio 36.3 (10.0-20.0); Blood Urea Nitrogen 37 mg/dL (9-23); Glucose 127 mg/dL (74-106)
[2023-06-06] MEDS: AMIODARONE HCL 200 MG TAB PO SCH (09:54)
[2023-06-06] MEDS: NOREPINEPHRINE 8 MG/250ML KIT 250 ML IV SCH (10:30)
[2023-06-06] MEDS ORDERED: TPN PER PHARMACY 0 ML IV SCH (15:15)
[2023-06-06 17:14] LABS: Albumin 3.8 g/dL (3.2-4.8); Magnesium 1.9 mg/dL (1.6-2.6)
[2023-06-06 17:15] LABS: Bilirubin, Total 1.6 mg/dL (0.2-1.0); Total Protein 5.4 g/dL (5.7-8.2)
[2023-06-06 17:47] LABS: Bilirubin, Direct 0.7 mg/dL (<0.3)
[2023-06-06] MEDS: FUROSEMIDE 40 MG/4 ML VIAL IV ONE (17:48)
[2023-06-06] MEDS: AMINO ACID INFUSION IN D10W 1,000 ML IV SCH (21:50)
[2023-06-07] VITALS (80 sets, daily range): BP systolic 62–128; BP diastolic 48–95; PULSE 68–138; RESP 15–41; TEMP 96.4–97.6; O2SAT 63–100
[2023-06-07] MEDS ORDERED: DEXTROSE (50%) 50ML SYRG IV SCH
[2023-06-07] MEDS: ACCU-CHEK COMFORT CURVE STRIP VI SCH (00:21)
[2023-06-07] MEDS: InsuLIN REG 1unit/0.01ml Soln (100units/ml) SC SCH (00:21)
[2023-06-07 05:05] LABS: Alanine Aminotransferase 516 U/L (7-40); Alkaline Phosphatase 172 U/L (46-116); Anion Gap 8 (5-15); Aspartate Aminotransferase 529 U/L (13-40); BUN/Creatinine Ratio 31.2 (10.0-20.0); Bilirubin, Total 1.7 mg/dL (0.2-1.0); Blood Urea Nitrogen 34 mg/dL (9-23); Calcium 8.8 mg/dL (8.5-10.1); Carbon Dioxide 24 mmol/L (20-30); Chloride 112 mmol/L (98-107); Glucose 156 mg/dL (74-106); Phosphorus 3.2 mg/dL (2.4-5.1); Potassium 3.6 mmol/L (3.5-5.1); Sodium 144 mmol/L (136-145); Total Protein 5.4 g/dL (5.7-8.2); Triglycerides 126 mg/dL (< 150)
[2023-06-07 05:37] LABS: Magnesium 1.9 mg/dL (1.6-2.6)
[2023-06-07] MEDS: MAGNESIUM SULFATE 1GM/100ML 100 ML IV ONE (11:41)
[2023-06-07] MEDS: POTASSIUM PHOSPHATE 22 MEQ in SODIUM CHL 0.9% 100 ML IV ONE (13:02)
[2023-06-07] MEDS: AMINO ACID INFUSION IN D10W 1,000 ML IV SCH (20:25)
[2023-06-08] VITALS (102 sets, daily range): BP systolic 46–155; BP diastolic 35–128; PULSE 59–104; RESP 16–39; TEMP 96–98; O2SAT 54–100
[2023-06-08 05:19] LABS: Albumin 4.2 g/dL (3.2-4.8); Alkaline Phosphatase 440 U/L (46-116); Anion Gap 13 (5-15); BUN/Creatinine Ratio 44.3 (10.0-20.0); Calcium 9.1 mg/dL (8.7-10.4); Carbon Dioxide 19 mmol/L (20-30); Chloride 109 mmol/L (98-107); Glucose 140 mg/dL (74-106); Magnesium 2.2 mg/dL (1.6-2.6); Phosphorus 3.7 mg/dL (2.4-5.1); Sodium 141 mmol/L (136-145)
[2023-06-08 05:31] LABS: Alanine Aminotransferase 2012 U/L (7-40); Aspartate Aminotransferase 2260 U/L (13-40); Blood Urea Nitrogen 51 mg/dL (9-23)
[2023-06-08] MEDS: DIGOXIN 0.125 MG TAB PO SCH (10:00)
[2023-06-08] MEDS ORDERED: TPN PER PHARMACY 0 ML IV SCH (10:15)
[2023-06-08 11:02] LABS: % Iron Saturation 87.4 % (15-50)
[2023-06-08 11:06] LABS: Hemoglobin 8.7 g/dL (12.2-16.2); Mean Corpuscular Hgb Conc. 31.1 g/dL (32.0-36.0); Mean Corpuscular Volume 99.7 fL (80.0-100.0); Red Blood Cells 2.81 10^6/uL (4.0-5.20); Red Cell Distribution Width 17.6 % (11.8-14.3); White Blood Cell 21.9 10^3/uL (4.4-10.8)
[2023-06-08 11:14] LABS: Basophils % (manual) 0 (0.0-2.0); Blast Cells 0; Eosinophils % (manual) 0 (0-7); Metamyelocytes % 0; Myelocytes % 0; Promyelocytes % 0; Reactive Lymphocytes 0
[2023-06-08 12:30] LABS: Band Neutrophils % (manual) 5; Lymphocytes % (manual) 17 (10.0-50.0); Monocytes % (manual) 2 (0-12)
[2023-06-08 12:31] LABS: Platelet Estimate Decreased
[2023-06-08] MEDS: TPN PER PHARMACY IV NR (20:28)
[2023-06-09] VITALS (55 sets, daily range): BP systolic 37–118; BP diastolic 30–86; PULSE 75–140; RESP 19–42; TEMP 97.6–98.1; O2SAT 72–100
[2023-06-09] MEDS: PHENYLEPHRINE IV 250 ML IV ONE ×2 (00:27→07:49)
[2023-06-09] MEDS: PHENYLEPHRINE HCL 10 MG/ML VL ONE ×3 (00:27→07:49)
[2023-06-09 09:29] LABS: Basophils # (auto) 0.1 10 ^3/uL (0-0.2); Basophils % (auto) 0.3 % (0.0-2.0); Eosinophils # (auto) 0 10 ^3/uL (0-0.8); Eosinophils % (auto) 0.1 % (0.0-7.0); Hematocrit 27.3 % (36.0-46.0); Hemoglobin 8.5 g/dL (12.2-16.2); Lymphocytes # (auto) 2.5 10 ^3/uL (0.4-5.4); Lymphocytes % (auto) 8.7 % (10.0-50.0); Mean Corpuscular Hemoglobin 29.6 pg (28.0-32.0); Mean Corpuscular Hgb Conc. 31.2 g/dL (32.0-36.0); Monocytes # (auto) 1.7 10 ^3/uL (0-1.3); Monocytes % (auto) 5.9 % (0.0-12.0); Neutrophils # (auto) 24.4 10 ^3/uL (1.6-8.6); Red Blood Cells 2.87 10^6/uL (4.0-5.20); Red Cell Distribution Width 16.4 % (11.8-14.3); White Blood Cell 28.7 10^3/uL (4.4-10.8)
[2023-06-09 09:31] LABS: Base Excess -4.2 mmol/L (-2.0-2.0)
[2023-06-09 09:34] LABS: Nucleated Red Blood Cells % 5.1 %
[2023-06-09 09:36] LABS: Albumin 3.4 g/dL (3.2-4.8); Alkaline Phosphatase 310 U/L (46-116); Anion Gap 8 (5-15); BUN/Creatinine Ratio 43.8 (10.0-20.0); Bilirubin, Total 2.4 mg/dL (0.2-1.0); Blood Urea Nitrogen 56 mg/dL (9-23); Calcium 8.3 mg/dL (8.5-10.1); Carbon Dioxide 22 mmol/L (20-30); Chloride 116 mmol/L (98-107); Glucose 180 mg/dL (74-106); Phosphorus 2.3 mg/dL (2.4-5.1); Potassium 3.9 mmol/L (3.5-5.1); Total Protein 4.7 g/dL (5.7-8.2)
[2023-06-09 09:48] LABS: Alanine Aminotransferase 1617 U/L (7-40)
[2023-06-09 09:53] LABS: Sodium 146 mmol/L (136-145)
[2023-06-09 11:00] LABS: Aspartate Aminotransferase 1595 U/L (13-40); Magnesium 2.1 mg/dL (1.6-2.6)
[2023-06-09] MEDS ORDERED: VASOPRESSIN 20 UNITS in SODIUM CHL 0.9% 99 ML IV SCH (13:00)
[2023-06-09] MEDS ORDERED: SODIUM PHOSPHATES 40 MEQ in D5W 5% 250 ML IV ONE (13:00)
[2023-06-09] MEDS ORDERED: MORPHINE SULFATE 4 MG/ML SYR/VIAL IV PRN (13:45)
[2023-06-09] MEDS: MORPHINE SULFATE INJ 2 MG/ml SYRG ONE (13:49)
[2023-06-09] MEDS ORDERED: TPN PER PHARMACY IV NR (20:00)
== END 2023-06-09 18:55 | DRG 323 ==
LOC: EDBD 11:40 → ER 11:40 → TELE 19:48 → TELE-CENTR 05-20 17:03 → ICU CENTRL 05-23 21:50
PROVIDERS: ADMIT Internal Medicine; ATTEND Internal Medicine
PROC: 5A09357 Assistance with Respiratory Ventilation, Less than 24 Consecutive Hours, Continuous Positive Airway Pressure (ICD-10-PCS; 2023-05-19)
PROC: 027034Z Dilation of Coronary Artery, One Artery with Drug-eluting Intraluminal Device, Percutaneous Approach (ICD-10-PCS; 2023-05-20)
PROC: 02F03ZZ Fragmentation in Coronary Artery, One Artery, Percutaneous Approach (ICD-10-PCS; 2023-05-20)
PROC: 4A023N7 Measurement of Cardiac Sampling and Pressure, Left Heart, Percutaneous Approach (ICD-10-PCS; 2023-05-20)
PROC: B211YZZ Fluoroscopy of Multiple Coronary Arteries using Other Contrast (ICD-10-PCS; 2023-05-20)
PROC: B215YZZ Fluoroscopy of Left Heart using Other Contrast (ICD-10-PCS; 2023-05-20)
PROC: B41GYZZ Fluoroscopy of Left Lower Extremity Arteries using Other Contrast (ICD-10-PCS; 2023-05-20)
PROC: 02HV33Z Insertion of Infusion Device into Superior Vena Cava, Percutaneous Approach (ICD-10-PCS; 2023-05-25)
PROC: B548ZZA Ultrasonography of Superior Vena Cava, Guidance (ICD-10-PCS; 2023-05-25)
PROC: 03HY32Z Insertion of Monitoring Device into Upper Artery, Percutaneous Approach (ICD-10-PCS; 2023-05-25)
PROC: 5A0945A Assistance with Respiratory Ventilation, 24-96 Consecutive Hours, High Flow/Velocity Cannula (ICD-10-PCS; 2023-05-29)
PROC: 03HY32Z Insertion of Monitoring Device into Upper Artery, Percutaneous Approach (ICD-10-PCS; 2023-06-03)
PROC: 02HV33Z Insertion of Infusion Device into Superior Vena Cava, Percutaneous Approach (ICD-10-PCS; principal; 2023-06-05)
PROC: B548ZZA Ultrasonography of Superior Vena Cava, Guidance (ICD-10-PCS; 2023-06-05)
PROC: 5A0945A Assistance with Respiratory Ventilation, 24-96 Consecutive Hours, High Flow/Velocity Cannula (ICD-10-PCS; 2023-06-07)
DX: I21.4 Non-ST elevation (NSTEMI) myocardial infarction (principal); I50.23 Acute on chronic systolic (congestive) heart failure; J96.01 Acute respiratory failure with hypoxia; J15.20 Pneumonia due to staphylococcus, unspecified; E87.20 Acidosis, unspecified; J90 Pleural effusion, not elsewhere classified; I47.19 Other supraventricular tachycardia; N17.9 Acute kidney failure, unspecified; I42.9 Cardiomyopathy, unspecified; I25.10 Atherosclerotic heart disease of native coronary artery without angina pectoris; Z20.822 Contact with and (suspected) exposure to COVID-19; R57.0 Cardiogenic shock; E78.5 Hyperlipidemia, unspecified; I95.9 Hypotension, unspecified; I11.0 Hypertensive heart disease with heart failure; I44.7 Left bundle-branch block, unspecified; B95.7 Other staphylococcus as the cause of diseases classified elsewhere; B96.89 Other specified bacterial agents as the cause of diseases classified elsewhere; Z90.710 Acquired absence of both cervix and uterus; Z82.61 Family history of arthritis; Z79.82 Long term (current) use of aspirin; Z51.5 Encounter for palliative care; Z86.74 Personal history of sudden cardiac arrest; Z79.02 Long term (current) use of antithrombotics/antiplatelets
CPT/HCPCS: 36415; 36569; 36600; 71045; 71275; 75710; 76604; 80048; 80053; 80076; 80202; 80307; 81001; 82728; 82805; 82962; 83540; 83550; 83605; 83735; 83880; 84100; 84132; 84443; 84478; 84484; 85007; 85025; 85027; 85379; 85610; 85730; 87040; 87070; 87077; 87086; 87186; 87205; 87426; 87493; 87804; 92941; 92978; 93005; 93306; 93458; 93925; 93970; 94640; 94660; 97163; 97530; 99152; 99291; C9113; G0378; J0153; J1815; J2001; J2405; J2543; J3480; J3490; J7060; J7131; P9047; Q9967